=== PATIENT | male | born 1975 | race Two or more races ===

== ENCOUNTER 2017-09-11 05:14 | Day surgery (SDC) | payer BC ==
[2017-09-11] VITALS (11 sets, daily range): BP systolic 108–138; BP diastolic 61–71
[~2017-09-11] VITALS: Ht 177.8 cm; Wt 77.1 kg
[~2017-09-11 05:14] MED LIST: LEVOTHYROXINE150 MCG ORAL
[2017-09-11] MEDS ORDERED: fentaNYL 100 mcg/2 mL IV ONE (07:00)
[2017-09-11] MEDS ORDERED: Glycopyrrolate 0.2mg/ml 1ml Vial ONE (07:00)
[2017-09-11] MEDS ORDERED: ePHEDrine 50mg/ml Inj ONE (07:00)
[2017-09-11] MEDS ORDERED: Propofol 200mg/20ml IV ONE (07:00)
[2017-09-11] MEDS ORDERED: LR 1000ml ONE (07:00)
[2017-09-11] MEDS ORDERED: Lidocaine 1% MPF 10mg/ml 5ml ONE (07:00)
[2017-09-11] MEDS ORDERED: Bupivacaine w/Epi 0.75% 30ml Vial INJ ONE (07:00)
[2017-09-11] MEDS ORDERED: Bupivacaine 0.25% Inj 30ml INJ ONE (07:00)
[2017-09-11] MEDS ORDERED: Metoclopramide 10mg/2ml Inj ONE (07:00)
[2017-09-11] MEDS ORDERED: Midazolam 2mg/2ml Inj ONE (07:00)
[2017-09-11] MEDS ORDERED: Ketorolac 30mg Inj ONE (07:00)
[2017-09-11] MEDS ORDERED: NS Irrig 1000ml IRRIG ONE (07:11)
--- NOTE | 2017-09-11 07:24 | Pre-Procedure Note/Attestation ---
Pre-Procedure Note/Attestation Complete Prior to Procedure Planned Procedure: right Procedure Narrative: repair of right inguinal hernia with mesh, excision right medial wrist-forearm soft tissue mass. Indications for Procedure Pre-Operative Diagnosis: right inguinal hernia, right medial wrist-forearm soft tissue mass Attestation I attest that I discussed the nature of the procedure; its benefits; risks and complications; and alternatives (and the risks and benefits of such alternatives ), prior to the procedure, with the patient (or the patient's legal banking representative). I attest that, if there was a reasonable possibility of needing a blood transfusion, the patient (or the patient's legal banking representative) was given the [place] [employer] [facility] standardized written summary, pursuant to the [place] Blood Safety Act ([place] Health and Safety Code # 1645, as amended). I attest that I re-evaluated the patient just prior to the surgery and that there has been no change in the patient's H&P, except as documented below: MCKENNA BALDERAS Sep 11, 2017 07:24
--- NOTE | 2017-09-11 07:24 | Pre-Procedure Note/Attestation ---
Pre-Procedure Note/Attestation Complete Prior to Procedure Planned Procedure: right Procedure Narrative: repair of right inguinal hernia with mesh, excision right medial wrist-forearm soft tissue mass. Indications for Procedure Pre-Operative Diagnosis: right inguinal hernia, right medial wrist-forearm soft tissue mass Attestation I attest that I discussed the nature of the procedure; its benefits; risks and complications; and alternatives (and the risks and benefits of such alternatives ), prior to the procedure, with the patient (or the patient's legal sales representative facility services). I attest that, if there was a reasonable possibility of needing a blood transfusion, the patient (or the patient's legal sales representative facility services) was given the [place] [facility] standardized written summary, pursuant to the [place] Blood Safety Act ([place] Health and Safety Code # 1645, as amended). I attest that I re-evaluated the patient just prior to the surgery and that there has been no change in the patient's H&P, except as documented below: MCKENNA BALDERAS Sep 11, 2017 07:24
--- NOTE | 2017-09-11 07:24 | Pre-Procedure Note/Attestation ---
Pre-Procedure Note/Attestation Complete Prior to Procedure Planned Procedure: right Procedure Narrative: repair of right inguinal hernia with mesh, excision right medial wrist-forearm soft tissue mass. Indications for Procedure Pre-Operative Diagnosis: right inguinal hernia, right medial wrist-forearm soft tissue mass Attestation I attest that I discussed the nature of the procedure; its benefits; risks and complications; and alternatives (and the risks and benefits of such alternatives ), prior to the procedure, with the patient (or the patient's legal telecommunications sales representative). I attest that, if there was a reasonable possibility of needing a blood transfusion, the patient (or the patient's legal telecommunications sales representative) was given the [place] [facility] standardized written summary, pursuant to the [place] Blood Safety Act ([place] Health and Safety Code # 1645, as amended). I attest that I re-evaluated the patient just prior to the surgery and that there has been no change in the patient's H&P, except as documented below: MCKENNA BALDERAS Sep 11, 2017 07:24
--- NOTE | 2017-09-11 07:54 | Anethesia Preoperative Eval ---
Anesthesia Pre-op PMH/ROS General Date of Evaluation: Sep 11, 2017 Time of Evaluation: 07:50 Anesthesiologist: katlyn ASA Score: ASA 2 Mallampati Score Class I : Soft palate, uvula, fauces, pillars visible Class II: Soft palate, uvula, fauces visible Class III: Soft palate, base of uvula visible Class IV: Only hard plate visible Mallampati Classification: Class II Surgeon: Chet Diagnosis: inguinal Hernia Surgical Procedure: Right Ingunial Hernia Repair Anesthesia History: none Family History: no anesthesia problems Allergies: Coded Allergies: No Known Allergies (Unverified , 09/10/17) Medications: see eMAR Past Medical History Cardiovascular: Denies: HTN, CAD, [place], valve dz, arrhythmia, other Pulmonary: Denies: asthma, COPD, [place], other Gastrointestinal/Genitourinary: Denies: GERD, CRI, ESRD, other Neurologic/Psychiatric: Denies: dementia, CVA, depression/anxiety, TIA, other Endocrine: Reports: hypothyroidism HEENT: Denies: cataract (L), cataract (R), glaucoma, [place] (L), [place] (R), other Hematology/Immune: Denies: anemia, DVT, bleeding disorder, other Musculoskeletal/Integumentary: Denies: OA, RA, DJD, DDD, edema, other PSxH Narrative: thyoidectomy Anesthesia Pre-op Phys. Exam Physician Exam Last Vital Signs Date Time Temp Pulse Resp B/P (MAP) Pulse Ox O2 Delivery O2 Flow Rate FiO2 09/11/17 05:53 97.9 63 20 114/68 97 Room Air Constitutional: NAD Neurologic: CN 2-12 intact Cardiovascular: RRR Respiratory: CTA Gastrointestinal: S/NT/ND Airway Exam Mallampati Score: Class II MO: full Neck: normal ROM: full Dentures: no upper, no lower Anesthesia Pre-op A/P Labs wnl Studies Pre-op Studies: EKG - sr Risk Assessment & Plan Assessment: denies cp/recent cold Plan: general lma Pre-Antibiotics Drug: ancef Given Within 1 Hr of Incision: Yes Time Given: 07:30 NIKOLAS RAE CRNA Sep 11, 2017 07:54
--- NOTE | 2017-09-11 07:54 | Anethesia Preoperative Eval ---
Anesthesia Pre-op PMH/ROS General Date of Evaluation: Sep 11, 2017 Time of Evaluation: 07:50 Anesthesiologist: katlyn ASA Score: ASA 2 Mallampati Score Class I : Soft palate, uvula, fauces, pillars visible Class II: Soft palate, uvula, fauces visible Class III: Soft palate, base of uvula visible Class IV: Only hard plate visible Mallampati Classification: Class II Surgeon: Chet Diagnosis: inguinal Hernia Surgical Procedure: Right Ingunial Hernia Repair Anesthesia History: none Family History: no anesthesia problems Allergies: Coded Allergies: No Known Allergies (Unverified , 09/10/17) Medications: see eMAR Past Medical History Cardiovascular: Denies: HTN, CAD, [place], valve dz, arrhythmia, other Pulmonary: Denies: asthma, COPD, [place], other Gastrointestinal/Genitourinary: Denies: GERD, CRI, ESRD, other Neurologic/Psychiatric: Denies: dementia, CVA, depression/anxiety, TIA, other Endocrine: Reports: hypothyroidism HEENT: Denies: cataract (L), cataract (R), glaucoma, [place] (L), [place] (R), other Hematology/Immune: Denies: anemia, DVT, bleeding disorder, other Musculoskeletal/Integumentary: Denies: OA, RA, DJD, DDD, edema, other PSxH Narrative: thyoidectomy Anesthesia Pre-op Phys. Exam Physician Exam Last Vital Signs Date Time Temp Pulse Resp B/P (MAP) Pulse Ox O2 Delivery O2 Flow Rate FiO2 09/11/17 05:53 97.9 63 20 114/68 97 Room Air Constitutional: NAD Neurologic: CN 2-12 intact Cardiovascular: RRR Respiratory: CTA Gastrointestinal: S/NT/ND Airway Exam Mallampati Score: Class II MO: full Neck: normal ROM: full Dentures: no upper, no lower Anesthesia Pre-op A/P Labs wnl Studies Pre-op Studies: EKG - sr Risk Assessment & Plan Assessment: denies cp/recent cold Plan: general lma Pre-Antibiotics Drug: ancef Given Within 1 Hr of Incision: Yes Time Given: 07:30 NIKOLAS RAE CRNA Sep 11, 2017 07:54
--- NOTE | 2017-09-11 07:54 | Anethesia Preoperative Eval ---
Anesthesia Pre-op PMH/ROS General Date of Evaluation: Sep 11, 2017 Time of Evaluation: 07:50 Anesthesiologist: katlyn ASA Score: ASA 2 Mallampati Score Class I : Soft palate, uvula, fauces, pillars visible Class II: Soft palate, uvula, fauces visible Class III: Soft palate, base of uvula visible Class IV: Only hard plate visible Mallampati Classification: Class II Surgeon: Chet Diagnosis: inguinal Hernia Surgical Procedure: Right Ingunial Hernia Repair Anesthesia History: none Family History: no anesthesia problems Allergies: Coded Allergies: No Known Allergies (Unverified , 09/10/17) Medications: see eMAR Past Medical History Cardiovascular: Denies: HTN, CAD, [place], valve dz, arrhythmia, other Pulmonary: Denies: asthma, COPD, [place], other Gastrointestinal/Genitourinary: Denies: GERD, CRI, ESRD, other Neurologic/Psychiatric: Denies: dementia, CVA, depression/anxiety, TIA, other Endocrine: Reports: hypothyroidism HEENT: Denies: cataract (L), cataract (R), glaucoma, [place] (L), [place] (R), other Hematology/Immune: Denies: anemia, DVT, bleeding disorder, other Musculoskeletal/Integumentary: Denies: OA, RA, DJD, DDD, edema, other PSxH Narrative: thyoidectomy Anesthesia Pre-op Phys. Exam Physician Exam Last Vital Signs Date Time Temp Pulse Resp B/P (MAP) Pulse Ox O2 Delivery O2 Flow Rate FiO2 09/11/17 05:53 97.9 63 20 114/68 97 Room Air Constitutional: NAD Neurologic: CN 2-12 intact Cardiovascular: RRR Respiratory: CTA Gastrointestinal: S/NT/ND Airway Exam Mallampati Score: Class II MO: full Neck: normal ROM: full Dentures: no upper, no lower Anesthesia Pre-op A/P Labs wnl Studies Pre-op Studies: EKG - sr Risk Assessment & Plan Assessment: denies cp/recent cold Plan: general lma Pre-Antibiotics Drug: ancef Given Within 1 Hr of Incision: Yes Time Given: 07:30 NIKOLAS RAE CRNA Sep 11, 2017 07:54
[2017-09-11] MEDS ORDERED: Metoclopramide 10mg/2ml Inj IVP PRN (08:00)
[2017-09-11] MEDS ORDERED: fentaNYL 100 mcg/2 mL IV PRN (08:00)
--- NOTE | 2017-09-11 08:51 | Brief Operative Note ---
Immediate Post Operative Note Operative Note Pre-op Diagnosis: right inguinal hernia, right medial wrist-forearm soft tissue mass Procedure: Repair of right inguinal hernia with mesh, excision right medial wrist-forearm soft tissue mass. Post-op Diagnosis: same as pre-op Surgeon: apolinar Anesthesiologist: isaiah Anesthesia: general Specimen: yes - hernia sac, wrist soft tissue mass Complications: none Condition: stable Fluids: lr Estimated Blood Loss: minimal Drains: none Implant(s) used?: Yes - prolene mesh MCKENNA BALDERAS Sep 11, 2017 08:51
[2017-09-11] MEDS ORDERED: Tylenol #3 tab (300mg/30mg) ORAL PRN (10:45)
[2017-09-11] MEDS ORDERED: Norco 5mg/325mg tab ORAL PRN (10:45)
[2017-09-11] MEDS ORDERED: HYDROmorphone 1mg/ml Carpuject SUBQ PRN (10:45)
--- NOTE | 2017-09-11 10:57 | 48 Hour Post Anesthesia Eval ---
Post Anesthesia Evaluation Procedure: inguinal hernia repair Date of Evaluation: Sep 11, 2017 Time of Evaluation: 10:56 Blood Pressure Systolic: 117 0: 71 Pulse Rate: 67 Respiratory Rate: 14 Temperature (Fahrenheit): 97.5 O2 Sat by Pulse Oximetry: 100 Airway: patent Nausea: No Vomiting: No Hydration Status: adequate Cardiopulmonary Status: stable Mental Status/LOC: patient returned to baseline Post-Anesthesia Complications: none Follow-up care needed: N/A NIKOLAS RAE CRNA Sep 11, 2017 10:57
--- NOTE | 2017-09-11 10:58 | Immediate Post-Op Evaluation ---
Immediate Post-Op Evalulation Immediate Post-Op Evalulation Procedure: inguinal hernia repair Date of Evaluation: Sep 11, 2017 Time of Evaluation: 08:40 IV Fluids: 1000 Blood Pressure Systolic: 138 Blood Pressure Diastolic: 67 Pulse Rate: 74 Respiratory Rate: 14 O2 Sat by Pulse Oximetry: 100 Temperature (Fahrenheit): 97.7 Pain Score (1-10): 0 Nausea: No Vomiting: No Complications none Patient Status: awake, reacts Hydration Status: adequate Drug: ancef Given Within 1 Hr of Incision: Yes Time Given: 07:30 NIKOLAS RAE CRNA Sep 11, 2017 10:58
--- NOTE | 2017-09-11 17:30 | History and Physical Report ---
DATE OF ADMISSION: 09/11/2017 REASON FOR ADMISSION: Outpatient surgery on 09/11/2017 for repair of right inguinal hernia and excision of right wrist soft tissue mass. HISTORY OF PRESENT ILLNESS: The patient is a 41-year-old male with a history of an increasing size of right inguinal hernia with some pain and tenderness, saw his attending physician, and he was referred to me for evaluation. On exam, he had an obvious reducible right inguinal hernia and also complained of a right medial wrist-distal forearm soft tissue mass, which was hurting him. I advised him to undergo removal of this at the same time. PAST MEDICAL HISTORY: History of thyroidectomy for CA several years ago. MEDICATIONS: Synthroid 125 mcg every day. ALLERGIES: None known. REVIEW OF SYSTEMS: None pertinent except for above. PHYSICAL EXAMINATION: VITAL SIGNS: Blood pressure is 110/70, temperature is 98.6 degrees, pulse 78, and respirations 18. GENERAL: The patient is a well developed and well nourished male, in no distress. HEENT: Normal. NECK: Supple. LUNGS: Clear. HEART: Rhythmic and regular. ABDOMEN: Soft and flat. Bowel sounds are normoactive. No groin adenopathy. There is a reducible right inguinal hernia. EXTREMITIES: Good range of motion. There is right medial wrist-distal forearm nodular mobile soft tissue mass. IMPRESSION: 1. Right inguinal hernia. 2. Right medial wrist-distal forearm soft tissue mass. PLAN: The patient will be admitted on 09/11/2017 to undergo repair of the hernia and removal of the mass in the wrist. He understands the nature of the procedure, indications, risks, benefits, possible complications, and he wishes to proceed. Chandan Rosenberg M.D. DR: MARY JOB#: [id number] CC:
--- NOTE | 2017-09-11 18:00 | Operative Note - Dictated ---
DATE OF OPERATION: 09/11/2017 SURGEON: Chandan Rosenberg M.D. ESTIMATION MANAGER: None. ANESTHESIOLOGIST: Margret Gay, certified nurse concrete swimming pool installer. ANESTHESIA: General. PREOPERATIVE DIAGNOSES: 1. Right inguinal hernia. 2. Right medial wrist-distal forearm soft tissue mass. POSTOPERATIVE DIAGNOSES: 1. Right inguinal hernia. 2. Right medial wrist-distal forearm soft tissue mass. NAME OF OPERATION: 1. Repair of right inguinal hernia. 2. Excision of right wrist distal forearm-wrist soft tissue mass. FINDINGS AND INDICATIONS: The patient is a 41-year-old, Latin male with a history of progressively enlarging hernia on the right groin with some pain and tenderness, worse with prolonged standing. For that reason, he sought attention from his attending physician, Dr. Armstrong, who referred him to me for evaluation and surgery. At the same time, the patient complained to me when I examined him of right distal medial wrist soft tissue mass, which indeed was a lipomatosis structure. At surgery, indirect inguinal hernia was found as well as a weak pelvic floor, which was repaired as described. PROCEDURE IN DETAIL: With the patient lying in the supine position on the operating table, under general anesthesia with the entire right lower abdominal region and groin areas and the right distal forearm-wrist, prepped and draped in the usual sterile fashion with Betadine, an oblique incision was carried out in the right groin, subcutaneous tissue was divided, the external oblique aponeurosis was then identified and opened in the direction of its fibers. The ilioinguinal nerve was then identified and left intact. The cord was isolated and skeletonized with findings of the indirect inguinal hernia sac. The sac was then ligated up high with transfixation 2-0 Vicryl material and amputated and sent to pathology. The area was irrigated. Hemostasis was adequate. The pelvic floor was then reinforced by approximating the shelving edge of the inguinal ligament to the combined aponeurosis of the internal oblique and the transversus abdominis muscles using a continuous 2-0 Prolene suture to the mesh creating a nice tension-free repair. A small slit was made on the lateral aspect of the mesh to allow the cord structures to go through and the Prolene sutures snugly ligated recreating a nice internal ring. The area was irrigated. Hemostasis was adequate. The cord and the nerve were then replaced anatomically and the external oblique aponeurosis closed with 3-0 Vicryl suture continuous, the subcutaneous tissues with interrupted 3-0 Vicryl suture, and the skin with 4-0 Vicryl subcuticular sutures and Steri-Strips. Marcaine 0.75% with epinephrine 15 mL was injected for long-acting local anesthetic. The patient tolerated the procedure well. Estimated blood loss was less than 5 mL. The wrist mass was then removed through a transverse incision overlying the soft tissue mass, which had been marked prior to the operation, subcutaneous tissues divided, the lipomatosis structure removed and sent to pathology. Hemostasis was double checked, which was adequate with the cautery and the edges of the skin and subcutaneous tissues were approximated with 4-0 Vicryl sutures with complete closure. Steri-Strips applied. Sterile dressing was applied in both areas. The patient tolerated the procedure well. Estimated blood loss was less than 10 mL. Sponge and needle counts were correct. He went to the recovery room in stable condition. Chandan Rosenberg M.D. DR: Priya JOB#: [id number] CC:
== END 2017-09-11 10:25 | disposition home or self-care (01) ==
LOC: SUR 05:14
DX: K40.90 Unilateral inguinal hernia, without obstruction or gangrene, not specified as recurrent (principal); D23.61 Other benign neoplasm of skin of right upper limb, including shoulder; E89.0 Postprocedural hypothyroidism
CPT/HCPCS: 25075; 49507; C1781; J0690; J1885; J2250; J2405; J2704; J2765; J3010; J7120; 94003; 94150